=== PATIENT | male | born 1955 | race Two or more races ===

== ENCOUNTER 2018-07-15 10:34 | Emergency (ER) | payer OTHER ==
[~2018-07-15] VITALS: Ht 172.7 cm; Wt 99.8 kg
[2018-07-15] MEDS ORDERED: SODIUM CHLORIDE 0.9% 500 ML IVB ONE (10:38)
[2018-07-15 12:11] LABS: Basophils # (auto) 0 uL; Basophils % (auto) 0.1 % (0.0-2.0); Eosinophils # (auto) 0 uL; Hematocrit 46.1 % (41.0-53.0); Hemoglobin 15.3 g/dL (13.5-17.5); Lymphocytes # (auto) 0.5 uL; Lymphocytes % (auto) 5.1 % (10.0-50.0); Mean Corpuscular Hemoglobin 33.4 pg (28.0-32.0); Mean Corpuscular Hgb Conc. 33.3 g/dL (32.0-36.0); Mean Corpuscular Volume 100.3 fL (80.0-100.0); Monocytes # (auto) 0.3 uL; Monocytes % (auto) 2.9 % (0.0-12.0); Neutrophils # (auto) 9.6 uL; Neutrophils % (auto) 91.9 % (37.0-80.0); Nucleated Red Blood Cells % 0.1 %; Platelet Count (auto) 173 10^3/uL (140-450); Red Blood Cells 4.59 10^6/uL (4.5-5.90); White Blood Cell 10.4 10^3/uL (4.4-10.8)
[2018-07-15 12:24] LABS: INR 0.95 (0.9-1.15); Prothrombin Time 10.2 sec (9.27-12.13)
[2018-07-15 13:00] LABS: Lactic Acid w/Reflex 2.1 mmol/L (0.4-2.0)
[2018-07-15 13:02] LABS: Chloride 109 mmol/L (98-107); Potassium 3.7 mmol/L (3.5-5.1); Sodium 139 mmol/L (136-145)
[2018-07-15 13:11] LABS: Alanine Aminotransferase 35 U/L (16-61); Albumin 3.8 g/dL (3.4-5.0); Alkaline Phosphatase 81 U/L (45-117); Anion Gap 4 (5-15); Aspartate Aminotransferase 16 U/L (15-37); BUN/Creatinine Ratio 23.5; Bilirubin, Total 0.4 mg/dL (0.2-1.0); Blood Alcohol < 3.0 mg/dL (0-5); Blood Urea Nitrogen 24 mg/dL (7-18); Calcium 8.6 mg/dL (8.5-10.1); Carbon Dioxide 26 mmol/L (21-32); GFR African American > 60 mL/min; GFR Non-African American > 60 mL/min; Glucose 162 mg/dL (74-106); Total Protein 8.4 g/dL (6.4-8.2)
[2018-07-15] MEDS ORDERED: ONDANSETRON HCL 4 MG/2 ML VIAL IV ONE (15:15)
[2018-07-15] MEDS ORDERED: HYDROmorphone HCL 2 MG/ML VL IV ONE (15:15)
[2018-07-15 15:38] LABS: Urine Bacteria NONE SEEN /hpf (None Seen); Urine Blood Negative /uL (Negative); Urine Specific Gravity 1.013 (1.001-1.035); Urine WBC 1 /hpf (0 - 3)
[2018-07-15 15:49] LABS: Alcohol, Urine < 3.0 mg/dL (0-5); Amphetamine Screen, Urine NEGATIVE (NEGATIVE); Barbiturate Scree,Urine NEGATIVE (NEGATIVE); Benzodiazephine Screen, Urine NEGATIVE (NEGATIVE); Cannabinoid Screen, Urine POSITIVE (NEGATIVE); Cocaine Screen, Urine NEGATIVE (NEGATIVE); Opiate Scree,Urine POSITIVE (NEGATIVE); Phencyclidine Screen, Urine NEGATIVE (NEGATIVE)
[2018-07-15 17:14] VITALS: BP 153/75
== END 2018-07-15 17:49 | disposition short-term general hospital (02) ==
LOC: EDBD 10:34 → ER 10:38
DX: J18.9 Pneumonia, unspecified organism (principal); R41.82 Altered mental status, unspecified; E11.9 Type 2 diabetes mellitus without complications; I10 Essential (primary) hypertension
CPT/HCPCS: 36415; 51702; 70450; 71045; 80053; 80307; 80320; 81001; 83605; 83735; 84484; 85025; 85610; 85730; 87040; 87077; 87186; 93005; 94761; 96361; 96374; 96375; 99285; J1170; J2405; J7040

== ENCOUNTER 2021-11-05 01:42 | Emergency (ER) | payer OTHER ==
[~2021-11-05] VITALS: Ht 170.2 cm; Wt 90.7 kg
[2021-11-05 10:03] VITALS: BP 140/85
== END 2021-11-05 04:52 | disposition home or self-care (01) ==
LOC: EDBD 01:42 → ER 01:44
DX: K94.23 Gastrostomy malfunction (principal); I10 Essential (primary) hypertension; E11.9 Type 2 diabetes mellitus without complications; Z86.73 Personal history of transient ischemic attack (TIA), and cerebral infarction without residual deficits
CPT/HCPCS: 43762

== ENCOUNTER 2022-02-06 00:40 | Inpatient (IN) | payer OTHER ==
[~2022-02-06] VITALS: Ht 172.7 cm; Wt 99.1 kg
[2022-02-06] MEDS ORDERED: dilTIAZem 25 MG/5 ML VIAL IV ONE ×2 (01:00→01:30)
[2022-02-06] MEDS ORDERED: ACCU-CHEK COMFORT CURVE STRIP VI ONE (01:00)
[2022-02-06 01:29] LABS: Hemoglobin 19.4 g/dL (13.5-17.5); Mean Corpuscular Hemoglobin 34.5 pg (28.0-32.0); Mean Corpuscular Volume 101.4 fL (80.0-100.0); Red Blood Cells 5.63 10^6/uL (4.5-5.90); White Blood Cell 8.3 10^3/uL (4.4-10.8)
[2022-02-06] MEDS ORDERED: PIPERACILLIN-TAZOB 3.375GM 100 ML IV ONE (01:30)
[2022-02-06] MEDS ORDERED: dilTIAZem HCL 50 MG/10 ML VIAL IV ONE ×2 (01:33)
[2022-02-06 01:41] LABS: Hematocrit 57.1 % (41.0-53.0)
[2022-02-06 01:42] LABS: Basophils % (manual) 0 (0.0-2.0); Blast Cells 0; Eosinophils % (manual) 0 (0-7); Metamyelocytes % 0; Monocytes % (manual) 0 (0-12); Myelocytes % 0; Promyelocytes % 0; Reactive Lymphocytes 0
[2022-02-06 01:47] LABS: Lactic Acid w/Reflex 3.7 mmol/L (0.4-2.0)
[2022-02-06 01:59] LABS: Albumin 2.9 g/dL (3.4-5.0); Calcium 8.3 mg/dL (8.5-10.1)
[2022-02-06 02:01] LABS: BUN/Creatinine Ratio 26.7
[2022-02-06 02:04] LABS: Bilirubin, Total 0.7 mg/dL (0.2-1.0); Total Protein 7.9 g/dL (6.4-8.2)
[2022-02-06] MEDS ORDERED: PANTOPRAZOLE 40 MG/10 ML VIAL INJ IV ONE (02:30)
[2022-02-06 03:06] LABS: Band Neutrophils % (manual) 7; Lymphocytes % (manual) 7 (10.0-50.0)
[2022-02-06] MEDS ORDERED: ACETAMINOPHEN IV 100 ML IV ONE (03:40)
[2022-02-06 03:43] LABS: Urine Bacteria FEW /hpf (None Seen); Urine Blood 2+ /uL (Negative); Urine Hyaline Cast FEW /lpf (0 - 2); Urine Mucus FEW (None Seen); Urine Specific Gravity 1.022 (1.001-1.035); Urine Sperm PRESENT /hpf (None Seen); Urine WBC 4 /hpf (0 - 3)
[2022-02-06] MEDS ORDERED: AMIODARONE HCL 150 MG in D5W 5% 100 ML IV ONE (03:45)
[2022-02-06] MEDS ORDERED: ACETAMINOPHEN 325 MG TAB PO PRN (03:45)
[2022-02-06] MEDS ORDERED: DEXTROSE (50%) 50ML SYRG IV PRN (03:45)
[2022-02-06] MEDS ORDERED: ACETAMINOPHEN IV 1000 MG/100ML (10MG/ML) IV ONE (03:45)
[2022-02-06] MEDS ORDERED: MORPHINE SULFATE INJ 2 MG/ml SYRG IV PRN ×2 (03:45→16:15)
[2022-02-06] MEDS ORDERED: NITROGLYCERIN 0.4 MG SL TAB SL PRN ×2 (03:45→16:15)
[2022-02-06] MEDS ORDERED: ONDANSETRON HCL 4 MG/2 ML VIAL IV PRN (03:45)
[2022-02-06] MEDS ORDERED: FUROSEMIDE 40 MG/4 ML VIAL IV ONE (03:45)
[2022-02-06] MEDS ORDERED: AMIODARONE 450mg/250ml AE 250 ML IV SCH ×2 (04:00→10:00)
[2022-02-06] MEDS ORDERED: AMIODARONE HCL (50 MG/ ML) 3 ML VIAL IV ONE ×2 (04:13→04:16)
[2022-02-06 06:16] VITALS: BP 118/95
[2022-02-06] MEDS: InsuLIN REG 1unit/0.01ml Soln (100units/ml) SC SCH ×4 (06:24→23:38)
[2022-02-06] MEDS: ACCU-CHEK COMFORT CURVE STRIP VI SCH ×4 (06:24→23:37)
[2022-02-06] MEDS: AZITHROMYCIN 500MG/ 250ML 250 ML IV SCH ×3 (08:29→11:02)
[2022-02-06 08:39] LABS: Hemoglobin 19.9 g/dL (13.5-17.5)
[2022-02-06] MEDS ORDERED: cefTRIAXone 1GM/50ML D5W 50 ML IV SCH (09:00)
[2022-02-06] MEDS ORDERED: FUROSEMIDE 20 MG/2 ML VIAL IV ONE (09:30)
[2022-02-06] MEDS: METOPROLOL TARTRATE 25 MG TAB GT SCH ×2 (10:00→23:35)
[2022-02-06] MEDS ORDERED: ENOXAPARIN SOD 40 MG/0.4 ML SYRINGE SC SCH (10:00)
[2022-02-06] MEDS: cefTRIAXone 1GM/50ML D5W 50 ML IV SCH (10:49)
[2022-02-06] MEDS: AMIODARONE HCL 200 MG TAB GT SCH ×2 (10:58→23:35)
[2022-02-06] MEDS: PANTOPRAZOLE 40 MG/10 ML VIAL INJ IV SCH (11:02)
[2022-02-06] MEDS: ASPirin 81 mg TAB PO SCH (11:03)
[2022-02-06] MEDS: ENOXAPARIN SOD 100 MG/1 ML SYRINGE SC SCH ×2 (11:46→23:36)
[2022-02-06] MEDS: NITROGLYCERIN 0.2MG/HR TOPICAL PATCH TD SCH (11:47)
[2022-02-06] MEDS ORDERED: LIDOCAINE 2%HCL (LOCAL ANESTH.) INJ 20ML MDV ONE (14:59)
[2022-02-06] MEDS ORDERED: ANGIOMAX 250 MG VIAL IV ONE (15:19)
[2022-02-06] MEDS ORDERED: fentaNYL CITRATE 100 MCG/2 ML VL ONE (15:20)
[2022-02-06] MEDS ORDERED: SODIUM CHL 0.9% 50 ML ONE (15:20)
[2022-02-06 15:24] LABS: Magnesium 2.3 mg/dL (1.6-2.6)
[2022-02-06] MEDS ORDERED: VERAPAMIL 2.5MG/ML INJ 2ML VIAL IV ONE (15:24)
[2022-02-06] MEDS ORDERED: IODIXANOL 320MG/ML 100ML BTL IV ONE (15:43)
[2022-02-06] MEDS ORDERED: ATROPINE SULF 1 MG/10ml SYR ONE (15:46)
[2022-02-06 17:00] VITALS: BP 113/69
[2022-02-06] MEDS: FUROSEMIDE 20 MG/2 ML VIAL IV SCH (18:15)
[2022-02-06 18:16] VITALS: BP 113/69
[2022-02-06] MEDS ORDERED: VENL1TAB97 GT (19:40)
[2022-02-06] MEDS ORDERED: LANS30CA57 GT (19:40)
[2022-02-06] MEDS ORDERED: GLIP5TAB12 PO (19:41)
[2022-02-06] MEDS ORDERED: HYDR50TA15 GT (19:42)
[2022-02-06] MEDS ORDERED: LEV100T GT (19:44)
[2022-02-06] MEDS ORDERED: CYCL-837 GT (19:45)
[2022-02-06] MEDS ORDERED: ASPI1TAB20 GT (19:47)
[2022-02-06] MEDS ORDERED: TRAM50TA2 PEG (19:49)
[2022-02-06] MEDS ORDERED: ATOR20TA50 GT (19:58)
[2022-02-06] MEDS ORDERED: DOXY-340 GT (19:59)
[2022-02-06] MEDS ORDERED: LEVO0.5S6 OP (20:00)
[2022-02-06 21:41] VITALS: BP 123/67
[2022-02-06] MEDS ORDERED: ATORVASTATIN 20 MG TAB PO SCH (22:00)
[2022-02-06] MEDS: ATORVASTATIN 20 MG TAB GT SCH (23:35)
[2022-02-06] MEDS: traMADol HCL 50 MG TAB GT PRN (23:36)
[2022-02-07] VITALS (7 sets, daily range): BP systolic 80–141; BP diastolic 55–87
[2022-02-07 06:56] LABS: Basophils # (auto) 0 10 ^3/uL (0-0.2); Basophils % (auto) 0.1 % (0.0-2.0); Eosinophils # (auto) 0 10 ^3/uL (0-0.8); Hematocrit 51.6 % (41.0-53.0); Hemoglobin 17.2 g/dL (13.5-17.5); Lymphocytes # (auto) 1.2 10 ^3/uL (0.4-5.4); Lymphocytes % (auto) 9.7 % (10.0-50.0); Mean Corpuscular Hemoglobin 33.2 pg (28.0-32.0); Mean Corpuscular Hgb Conc. 33.3 g/dL (32.0-36.0); Mean Corpuscular Volume 99.7 fL (80.0-100.0); Monocytes # (auto) 0.7 10 ^3/uL (0-1.3); Neutrophils # (auto) 10.2 10 ^3/uL (1.6-8.6); Neutrophils % (auto) 84.2 % (37.0-80.0); Nucleated Red Blood Cells % 0.2 %; Red Blood Cells 5.18 10^6/uL (4.5-5.90); White Blood Cell 12.1 10^3/uL (4.4-10.8)
[2022-02-07] MEDS: FUROSEMIDE 20 MG/2 ML VIAL IV SCH ×2 (06:58→17:51)
[2022-02-07] MEDS: ACCU-CHEK COMFORT CURVE STRIP VI SCH ×3 (06:59→17:52)
[2022-02-07] MEDS: InsuLIN REG 1unit/0.01ml Soln (100units/ml) SC SCH ×3 (07:02→17:53)
[2022-02-07 07:13] LABS: Albumin 2.9 g/dL (3.4-5.0); Calcium 8.5 mg/dL (8.5-10.1); Magnesium 2.2 mg/dL (1.6-2.6); Potassium 3.3 mmol/L (3.5-5.1)
[2022-02-07 07:16] LABS: BUN/Creatinine Ratio 35.7; Bilirubin, Total 1.5 mg/dL (0.2-1.0); Total Protein 7.9 g/dL (6.4-8.2)
[2022-02-07] MEDS: ALBUTEROL SULF 2.5 MG/0.5ML(0.5%) NEB SOLN NEB PRN ×2 (08:55→19:07)
[2022-02-07] MEDS ORDERED: POTASSIUM CHLORIDE 40 MEQ, LIDOCAINE 1% (LOCAL ANESTH.) 4 ML in SODIUM CHL 0.9% 250 ML IV ONE (10:00)
[2022-02-07] MEDS: NITROGLYCERIN 0.2MG/HR TOPICAL PATCH TD SCH (10:00)
[2022-02-07] MEDS: AMIODARONE HCL 200 MG TAB GT SCH ×2 (10:01→22:00)
[2022-02-07] MEDS: ASPirin 81 mg TAB PO SCH (10:01)
[2022-02-07] MEDS: PANTOPRAZOLE 40 MG/10 ML VIAL INJ IV SCH (10:02)
[2022-02-07] MEDS: METOPROLOL TARTRATE 25 MG TAB GT SCH ×2 (10:02→22:00)
[2022-02-07] MEDS: cefTRIAXone 1GM/50ML D5W 50 ML IV SCH (10:03)
[2022-02-07] MEDS: ENOXAPARIN SOD 100 MG/1 ML SYRINGE SC SCH (10:03)
[2022-02-07] MEDS: AZITHROMYCIN 500MG/ 250ML 250 ML IV SCH (10:03)
[2022-02-07] MEDS: traMADol HCL 50 MG TAB GT PRN (10:04)
[2022-02-07] MEDS ORDERED: CYCL-839 PEG (15:34)
[2022-02-07] MEDS ORDERED: HYDR-3682 GT (15:34)
[2022-02-07] MEDS ORDERED: DOXY-111 PO (15:44)
[2022-02-07] MEDS ORDERED: LATA0.0019 EACHEYE (21:05)
[2022-02-07] MEDS ORDERED: SODIUM CHLORIDE 0.9% 500 ML IV ONE (21:45)
[2022-02-07] MEDS: ATORVASTATIN 20 MG TAB GT SCH (22:35)
[2022-02-07] MEDS: APIXABAN 5 MG TAB PO SCH (22:35)
[2022-02-08] MEDS: traMADol HCL 50 MG TAB GT PRN (00:40)
[2022-02-08] MEDS: ACCU-CHEK COMFORT CURVE STRIP VI SCH ×4 (00:52→17:33)
[2022-02-08 05:00] VITALS: BP 123/77
[2022-02-08] MEDS: InsuLIN REG 1unit/0.01ml Soln (100units/ml) SC SCH ×4 (06:00→17:34)
[2022-02-08] MEDS: FUROSEMIDE 20 MG/2 ML VIAL IV SCH ×2 (06:09→18:04)
[2022-02-08 07:30] VITALS: BP 123/77
[2022-02-08 08:47] VITALS: BP 109/73
[2022-02-08] MEDS: cefTRIAXone 1GM/50ML D5W 50 ML IV SCH (09:15)
[2022-02-08] MEDS: PANTOPRAZOLE 40 MG/10 ML VIAL INJ IV SCH (09:17)
[2022-02-08] MEDS: AZITHROMYCIN 500MG/ 250ML 250 ML IV SCH (09:17)
[2022-02-08] MEDS: METOPROLOL TARTRATE 25 MG TAB GT SCH ×2 (09:20→21:50)
[2022-02-08] MEDS: AMIODARONE HCL 200 MG TAB GT SCH ×2 (09:21→21:51)
[2022-02-08] MEDS: ASPirin 81 mg TAB PO SCH (09:21)
[2022-02-08] MEDS: APIXABAN 5 MG TAB PO SCH ×2 (09:21→21:53)
[2022-02-08 13:12] VITALS: BP 109/65
[2022-02-08] MEDS: CLINDAMYCIN 600MG IV 50 ML IV SCH ×2 (15:03→21:59)
[2022-02-08 17:15] VITALS: BP 109/74
[2022-02-08] MEDS: Glucerna Carbsteady SHAKE Chocolate 8oz PO SCH ×2 (18:04→22:17)
[2022-02-08 21:24] VITALS: BP 113/82
[2022-02-08] MEDS: ATORVASTATIN 20 MG TAB GT SCH (21:49)
[2022-02-09] MEDS: InsuLIN REG 1unit/0.01ml Soln (100units/ml) SC SCH ×2 (00:48→05:38)
[2022-02-09] MEDS: ACCU-CHEK COMFORT CURVE STRIP VI SCH ×2 (00:50→05:38)
[2022-02-09] MEDS: traMADol HCL 50 MG TAB GT PRN (01:32)
[2022-02-09 04:45] VITALS: BP 121/75
[2022-02-09] MEDS: CLINDAMYCIN 600MG IV 50 ML IV SCH (05:48)
[2022-02-09] MEDS: FUROSEMIDE 20 MG/2 ML VIAL IV SCH (05:48)
[2022-02-09] MEDS: Glucerna Carbsteady SHAKE Chocolate 8oz PO SCH (05:49)
[2022-02-09 07:17] VITALS: BP 121/75
[2022-02-09] MEDS: cefTRIAXone 1GM/50ML D5W 50 ML IV SCH (08:37)
[2022-02-09 08:50] VITALS: BP 121/75
[2022-02-09 09:00] VITALS: BP 108/69
[2022-02-09] MEDS ORDERED: APIXABAN 5 MG TAB GT SCH (10:00)
[2022-02-09] MEDS ORDERED: ASPirin 81 mg TAB GT SCH (10:00)
[2022-02-09] MEDS: AMIODARONE HCL 200 MG TAB GT SCH (10:27)
[2022-02-09] MEDS: METOPROLOL TARTRATE 25 MG TAB GT SCH (10:28)
[2022-02-09] MEDS: PANTOPRAZOLE 40 MG/10 ML VIAL INJ IV SCH (10:28)
== END 2022-02-09 11:00 | disposition hospice, home (50) | DRG 871 ==
LOC: ER 00:40 → EDUNIT# 00:40 → EDBD 00:40 → TELE 03:48 → TELE-WESTW 17:14
PROVIDERS: ADMIT Nurse Practitioner; ATTEND Internal Medicine
PROC: 4A023N7 Measurement of Cardiac Sampling and Pressure, Left Heart, Percutaneous Approach (ICD-10-PCS; principal; 2022-02-06)
PROC: B211YZZ Fluoroscopy of Multiple Coronary Arteries using Other Contrast (ICD-10-PCS; 2022-02-06)
PROC: B215YZZ Fluoroscopy of Left Heart using Other Contrast (ICD-10-PCS; 2022-02-06)
DX: A41.9 Sepsis, unspecified organism (principal); I21.4 Non-ST elevation (NSTEMI) myocardial infarction; I50.21 Acute systolic (congestive) heart failure; J18.9 Pneumonia, unspecified organism; I50.31 Acute diastolic (congestive) heart failure; K92.2 Gastrointestinal hemorrhage, unspecified; E11.9 Type 2 diabetes mellitus without complications; E66.9 Obesity, unspecified; I48.91 Unspecified atrial fibrillation; Z79.84 Long term (current) use of oral hypoglycemic drugs; R79.89 Other specified abnormal findings of blood chemistry; Z66 Do not resuscitate; Z20.822 Contact with and (suspected) exposure to COVID-19; K59.00 Constipation, unspecified; I11.0 Hypertensive heart disease with heart failure; I25.10 Atherosclerotic heart disease of native coronary artery without angina pectoris; Z93.0 Tracheostomy status; Z68.35 Body mass index [BMI] 35.0-35.9, adult; Z51.5 Encounter for palliative care; Z85.21 Personal history of malignant neoplasm of larynx; Z93.1 Gastrostomy status; Z86.73 Personal history of transient ischemic attack (TIA), and cerebral infarction without residual deficits
CPT/HCPCS: 31720; 36415; 70450; 71045; 71250; 71275; 74176; 80053; 80061; 81001; 82962; 83036; 83605; 83735; 83880; 84443; 84484; 85007; 85014; 85018; 85025; 85027; 85379; 87040; 87077; 87081; 87086; 87186; 93005; 93306; 93970; 94640; 96365; 96366; 96367; 96372; 96375; 96376; 99152; 99153; 99291; A4605; C1887; C9113; G0378; J0131; J0696; J1815; J2001; J2543; J3490; J7060; Q9967

== ENCOUNTER 2023-03-06 19:06 | Emergency (ER) | payer OTHER ==
[~2023-03-06] VITALS: Ht 182.9 cm; Wt 90.9 kg
[~2023-03-06 19:06] MED LIST: ATOR20TA50 GT; CYCL-839 PEG; DOXY-111 PO; GLIP5TAB12 PO; HYDR-3682 GT; LANS30CA57 GT; LATA0.008 EACHEYE; LEV100T GT; LEVO0.5S6 OP; TRAM50TA2 PEG; VENL1TAB97 GT
[2023-03-06 19:50] VITALS: PULSE 50; RESP 18; O2SAT 100
[2023-03-06] MEDS ORDERED: GASTROGRAFIN 30 ML SOL ONE (20:15)
[2023-03-06] MEDS ORDERED: cefTRIAXone SOD 1,000 MG VL IM ONE (23:45)
[2023-03-06] MEDS ORDERED: LIDOCAINE 1% HCL (LOCAL ANESTH.) INJ 20ML MDV ID ONE (23:45)
[2023-03-07] MEDS ORDERED: HYDROmorphone HCL 2 MG/ML VL/or syr IM ONE (06:30)
[2023-03-07 07:30] VITALS: TEMP 97.9
[2023-03-07 07:46] VITALS: PULSE 54; RESP 8; O2SAT 100
[2023-03-07 10:00] VITALS: BP 124/55; PULSE 57; RESP 9; O2SAT 100
== END 2023-03-07 11:19 | disposition home or self-care (01) ==
LOC: EDBD 19:06 → ER 19:06
DX: K94.23 Gastrostomy malfunction (principal); I10 Essential (primary) hypertension; E11.9 Type 2 diabetes mellitus without complications; Z98.890 Other specified postprocedural states; Z79.899 Other long term (current) drug therapy; Z86.73 Personal history of transient ischemic attack (TIA), and cerebral infarction without residual deficits
CPT/HCPCS: 43762; 74018; 93005; 96372; 99285; J0696; J1170; J2001; Q9963

== ENCOUNTER 2023-03-11 19:59 | Emergency (ER) | payer OTHER ==
[~2023-03-11] VITALS: Ht 177.8 cm; Wt 91.0 kg
[2023-03-11 20:35] VITALS: RESP 21; O2SAT 95
[2023-03-11] MEDS ORDERED: ceFAZolin IM 1GM/2.5ML STERILE WATER IM ONE (23:15)
[2023-03-11] MEDS ORDERED: GASTROGRAFIN 30 ML SOL ONE (23:40)
[2023-03-11] MEDS ORDERED: ceFAZolin 1GM/50ML 50 ML IV ONE (23:52)
[2023-03-12] MEDS ORDERED: ceFAZolin 1GM/50ML 50 ML IV ONE
[2023-03-12] MEDS ORDERED: AZIT-81 PO (01:22)
[2023-03-12] MEDS ORDERED: AZITHROMYCIN 500MG/ 250ML 250 ML IV ONE (01:30)
[2023-03-12] MEDS ORDERED: ACETAMINOPHEN 500 MG TAB PO ONE (02:00)
[2023-03-12 07:35] VITALS: PULSE 67; RESP 16; O2SAT 98
[2023-03-12 11:00] VITALS: BP 117/39; PULSE 71; RESP 14; O2SAT 96
== END 2023-03-12 11:31 | disposition home or self-care (01) ==
LOC: EDBD 19:59 → ER 20:02
DX: K94.23 Gastrostomy malfunction (principal); J40 Bronchitis, not specified as acute or chronic; E11.9 Type 2 diabetes mellitus without complications; I10 Essential (primary) hypertension; Z86.73 Personal history of transient ischemic attack (TIA), and cerebral infarction without residual deficits
CPT/HCPCS: 43762; 71045; 74018; 96365; 96366; 96367; 99285; J0456; J0690; Q9963; 43760